=== PATIENT | male | born 1970 | race Caucasian/White ===

== ENCOUNTER → 2021-10-27 | Outpatient (CLI) | payer BC, SELFPAY ==
--- NOTE | 2021-10-27 07:55 | KNEE_PTH ---
PATIENT: TOMMY VILLALOBOS LOC: [facility] U#:[id number] AGE/SX: 51/M ROOM: RE10/27/[address]: Dr. Rick Maravilla MD : 1970 BED: DIS: 10/27/2021 SPEC #: [id number] RECD: 10/27/21 15:05 STATUS: THAD [facility] #: [id number] JAY: 10/27/21 07:[address]: Rick Maravilla DEPT: SURGICAL PATHOLOGY RECD BY: Kacy Delgado ENTERED: 10/31/21 10:16 SP TYPE: TOTAL KNEE OTHR DR: MAGNUS Tissues: Knee, NOS Procedures: Decalcification bone/plaque Surgery Specimen Level IV HEADER OPERATION: Right total knee arthroplasty PRE-OP DIAGNOSIS: Grade 4 posttraumatic arthritis right knee TISSUE SUBMITTED: Right knee bone and soft tissue MICROSCOPIC DIAGNOSIS Bone and soft tissue, right knee, total knee replacement/resection: Pieces of bone with degenerative osteoarthritic changes. Fibroadipose tissue, fibroconnective tissue and reactive synovial tissue. SJ:jan 11/03/2021 MICROSCOPIC DESCRIPTION Slides are reviewed. GROSS DESCRIPTION Received is one container designated bone and soft tissue left knee. The specimen consists of multiple fragments of lewis-yellow bone measuring in aggregate 18 x 12 x 2.5 cm. Also in the specimen container are multiple fragments of yellow-white soft tissue measuring in aggregate 10 x 7 x 2 cm. A number of bony fragments contain articular surfaces consistent with tibial plateau and femoral condyle and displaying prominent osteophyte formation, eburnation, and bone erosion. Web Development Consultant sections are submitted in two cassettes as follows: 1 - soft tissue, 2 - bone after decalcification. / AM:jan 10/31/2021 TC:5 [facility]: [id number], [id number]
== END | disposition home or self-care (01) ==
LOC: LABSPEC 15:26
PROVIDERS: Referring Provider Orthopaedic Surgery; Visit Provider Orthopaedic Surgery
DX: M13.861 Other specified arthritis, right knee (principal)
CPT/HCPCS: 88305; 88311